=== PATIENT | male | born 1990 | race Caucasian/White ===

== ENCOUNTER 2017-02-18 12:20 | Emergency (ER) | payer BC ==
[~2017-02-18] VITALS: Ht 175.3 cm; Wt 74.1 kg
[~2017-02-18 12:20] MED LIST: NO HOME MEDS; PREDNISONE20 MG PO; VENTOLIN HFA18 GM IH; ZITHROMAX Z-PA250 MG PO
[2017-02-18] MEDS ORDERED: NAPROSYN500 MG PO (13:44)
[2017-02-18 14:36] VITALS: BP 115/67
== END 2017-02-18 14:37 | disposition home or self-care (01) ==
LOC: EME 12:20 → TRA 12:20 → EME 14:37
PROC: 2W3RX1Z Immobilization of Left Lower Leg using Splint (ICD-10-PCS; principal; 2017-02-18)
DX: S90.02XA Contusion of left ankle, initial encounter (principal); S93.402A Sprain of unspecified ligament of left ankle, initial encounter; W23.0XXA Caught, crushed, jammed, or pinched between moving objects, initial encounter; F17.200 Nicotine dependence, unspecified, uncomplicated
CPT/HCPCS: 73080; 73610; 73630; 99281; 99284; J2270; J2405